=== PATIENT | male | born 2000 | race Asian ===

== ENCOUNTER 2019-02-13 17:52 | Emergency (ER) | payer OTHER ==
--- NOTE | 2019-02-13 18:09 | ED Physician Documentation ---
History of Present Illness - Stated complaint Stated Complaint: CHEST TIGHTNESS - History obtained from History obtained from: Patient - History of Present Illness Timing: Today Pain level max: 1 Pain level now: 0 - Additonal information Additional information: 18-year-old male states that he felt his heart beating differently than usual today. States it lasted approximately 15 to 20 seconds. States he had a hard time breathing during this episode. Currently feels normal. Nothing made it better or worse. No medications at home. He does use caffeine and energy drinks. Review of Systems Constitutional: denies: Fever, Chills Throat: denies: Sore throat Respiratory: denies: Cough GI: denies: Abdominal Pain, Nausea, Vomiting, Diarrhea Skin: denies: Rash Musculoskeletal: denies: Neck pain, Back pain Neurologic: denies: Headache PD PAST MEDICAL HISTORY - Past Medical History Past Medical History: No - Past Surgical History Past Surgical History: No - Allergies Allergies/Adverse Reactions: Allergies Allergy/AdvReac Type Severity Reaction Status Date / Time No Known Drug Allergies Allergy Verified 02/13/19 18:15 - Living Situation Living Arrangement: reports: At home - Social History Does the pt smoke?: No Does the pt drink ETOH?: No Does the pt have substance abuse?: No PD ED PE NORMAL - Vitals Vital signs reviewed: Yes - General General: Alert and oriented X 3, No acute distress - HEENT HEENT: Moist mucous membranes - Neck Neck: Supple, no meningeal sign - Cardiac Cardiac: RRR, No murmur, Strong equal pulses - Respiratory Respiratory: No respiratory distress, Clear bilaterally - Abdomen Abdomen: Soft, Non tender, Non distended - Derm Derm: Warm and dry - Neuro Neuro: Alert and oriented X 3, certified medical asst 2-12 intact, No motor deficit, No sensory deficit Results - Vitals Vitals: Vital Signs - 24 hr 02/13/19 02/13/19 18:15 19:49 Temperature 36.3 C L 36.6 C Heart Rate 68 65 Respiratory 16 20 Rate Blood Pressure 135/81 H 125/78 O2 Saturation 100 98 Oxygen O2 Source Room air - EKG (time done) 1756 Rate: Rate (enter#) (72) Rhythm: NSR Cost: Normal Intervals: Normal CA QRS: Normal Ischemia: Normal ST segments - Labs Labs: Laboratory Tests 02/13/19 02/13/19 02/13/19 19:00 19:00 19:00 WBC 8.0 RBC 5.30 Hgb 16.3 Hct 47.7 MCV 90.0 MCH 30.8 MCHC 34.2 RDW 11.6 L Plt Count 253 MPV 10.0 Neut # (Auto) 4.9 Lymph # (Auto) 2.1 [place] # (Auto) 0.9 Eos # (Auto) 0.1 Baso # (Auto) 0.0 Absolute Nucleated RBC 0.00 Nucleated RBC % 0.0 Sodium 139 Potassium 3.8 Chloride 102 Carbon Dioxide 29 Anion Gap 8.0 BUN 16 Creatinine 1.1 Estimated GFR (MDRD) 85 L Glucose 96 Calcium 9.3 Total Bilirubin 0.7 AST 22 ALT 24 Alkaline Phosphatase 61 Troponin I High Sens < 2.3 L Total Protein 7.4 Albumin 4.6 Globulin 2.8 Albumin/Globulin Ratio 1.6 Lipase 32 - Rads (name of study) Chest x-ray Radiology: Prelim report reviewed, EMP read contemporaneously, See rad report (No acute disease) PD MEDICAL DECISION MAKING - ED course Complexity details: reviewed results, re-evaluated patient, considered differential, d/w patient ED course: 18-year-old male with palpitations. No acute findings on telemetry, laboratory testing or radiographs. We will have him cut out caffeine. We will have him follow-up with his doctor for further care. Patient counseled regarding signs and symptoms for which I believe and urgent re-evaluation would be necessary. Patient with good understanding of and agreement to plan and is comfortable going home at this time This document was made in part using voice recognition software. While efforts are made to proofread this document, sound alike and grammatical errors may occur. Departure - Departure Disposition: 01 Home, Self Care Clinical Impression: Palpitations Condition: Good Instructions: ED Chest Pain Atypical Unkn Cause, ED Palpitations Follow-Up: your,doctor in 1 week [Other] Comments: The cause of your symptoms is unclear. Avoid caffeine, energy drinks or any other stimulants. Return if you worsen. Your testing is normal tonight. Discharge Date/Time: 02/13/19 19:51
[2019-02-13 19:04] LABS: BASOPHILS % (AUTO) 0.5 %; EOSINOPHILS # (AUTO) 0.1 10^3/uL (0.0-0.7); EOSINOPHILS % (AUTO) 1.1 %; HGB - HEMOGLOBIN 16.3 g/dL (14.0-18.0); LYMPHOCYTES # (AUTO) 2.1 10^3/uL (1.5-3.5); LYMPHOCYTES % (AUTO) 25.8 %; MEAN CORPUSCULAR HEMOGLOBIN 30.8 pg (27.0-31.0); MEAN CORPUSCULAR HGB CONC 34.2 g/dL (32.0-36.0); MONOCYTES # (AUTO) 0.9 10^3/uL (0.0-1.0); MONOCYTES % (AUTO) 10.7 %; NEUTROPHILS # (AUTO) 4.9 10^3/uL (1.5-6.6); NEUTROPHILS % (AUTO) 61.6 %; PLT - PLATELET COUNT 253 10^3/uL (130-450); RED CELL DISTRIBUTION WIDTH 11.6 % (12.0-15.0)
[2019-02-13 19:19] LABS: ALBUMIN 4.6 g/dL (3.2-5.5); ALBUMIN/GLOBULIN RATIO 1.6 (1.0-2.2); BILIRUBIN,TOTAL 0.7 mg/dL (0.2-1.0); CALCIUM 9.3 mg/dL (8.5-10.3); CREATININE 1.1 mg/dL (0.6-1.2); TOTAL PROTEIN 7.4 g/dL (6.7-8.2)
--- NOTE | 2019-02-13 19:38 | XRAY Report ---
Reason: Chest Pain Procedure Date: 02/13/2019 Accession Number: [id number] / [id number] Procedure: XR - Chest 1 View X-Ray CPT Code: 57016 Final Report FULL RESULT: EXAM: CHEST RADIOGRAPHY EXAM DATE: 02/13/2019 07:03 PM. CLINICAL HISTORY: Brief episode of chest tightness and shortness of breath. COMPARISON: None. TECHNIQUE: 1 view. FINDINGS: Lungs/Pleura: No focal consolidation or evidence of edema. No pleural effusion or pneumothorax. Mediastinum: Normal cardiomediastinal contour. Other: The bones are normal. IMPRESSION: Normal single view chest. [facility]
[2019-02-13 19:49] VITALS: BP 125/78
== END 2019-02-13 19:51 | disposition home or self-care (01) ==
LOC: ED 17:52
DX: R00.2 Palpitations (principal); F15.90 Other stimulant use, unspecified, uncomplicated
CPT/HCPCS: 36415; 71045; 80053; 83690; 84484; 85025; 93005; 99284